=== PATIENT | male | born 1970 | race African-American/Black ===

== ENCOUNTER 2017-10-25 20:54 | Emergency (ER) | payer SELFPAY ==
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
[2017-10-25] MEDS: 0.9 % SODIUM CHLORIDE 1,000 ML IV SCH ×2 (21:35→22:00)
[2017-10-25 21:43] LABS: BASOPHILS % 0.4 (0.0-1.5); EOSINOPHILS % 5.2 % (0.0-6.8); MEAN CORPUSCULAR HEMOGLOBIN 24.1 pg (28.0-34.0); MONOCYTES % 11.9 % (0.0-11.0); NEUTROPHILS # 1.5 # k/uL (1.4-7.7)
[2017-10-25] MEDS ORDERED: 0.9 % SODIUM CHLORIDE 1,000 ML IV ONE (21:56)
[2017-10-25 22:01] LABS: eGFR (African) > 60; eGFR (Non-African) > 60
[2017-10-25] MEDS ORDERED: IBUPROFEN 200 MG TABLET PO ONE (23:16)
[2017-10-25] MEDS ORDERED: CYCLOBENZAPRINE HCL 5 MG TABLET PO ONE (23:16)
[2017-10-26 00:06] LABS: CANNABINOIDS NON NEGATIVE ng/mL (< 50); METHYLENEDIOXYMETHAMPHETAMINE NEGATIVE ng/mL (<500)
[2017-10-26 00:40] LABS: APPEARANCE,URINE CLEAR (CLEAR); COLOR,URINE YELLOW (YELLOW); OCCULT BLOOD,URINE NEGATIVE (NEGATIVE); UROBILINOGEN URINE 0.2 Eu (0.2-1.0)
[2017-10-26 01:55] VITALS: BP 127/81
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
[2017-10-28 15:13] LABS: CANNABINOIDS CONFIRMATION >150 ng/mL (<15)
== END 2017-10-25 23:30 | disposition home or self-care (01) ==
LOC: ED 20:54
DX: R42 Dizziness and giddiness (principal); R11.10 Vomiting, unspecified; V89.2XXA Person injured in unspecified motor-vehicle accident, traffic, initial encounter; Y92.9 Unspecified place or not applicable; Y93.9 Activity, unspecified; Y99.9 Unspecified external cause status
CPT/HCPCS: 70450; 80053; 80320; 80377; 81002; 85025; 93005; J7030; 96365; 99285; G0480; G0481; S1016